=== PATIENT | male | born 1945 ===

== ENCOUNTER 2021-12-01 10:51 | Inpatient (IN) ==
[2021-12-01] MEDS ORDERED: Senna TAB 8.6 mg TAB PO PRN (16:03)
[2021-12-01] MEDS ORDERED: Al Hydrox/Mg Hydrox/Simet LIQ 30 ML UDC PO PRN (16:37)
[2021-12-01] MEDS: Magnesium Hydroxide LIQ 30 ML UDC PO PRN (20:42)
[2021-12-01] MEDS: Heparin 5000 UNITS/ML 1 mL VIAL SUBCUT SCH (21:43)
[2021-12-02] MEDS: Magnesium Hydroxide LIQ 30 ML UDC PO PRN (03:44)
[2021-12-02] MEDS: Heparin 5000 UNITS/ML 1 mL VIAL SUBCUT SCH ×3 (05:56→23:27)
[2021-12-02 07:02] LABS: Hematocrit 30 % (42-52); Hemoglobin 10.4 g/dL (14.0-18.0); Mean Corpuscular HGB Conc 34 g/dL (31-36); Mean Corpuscular Hemoglobin 32 pg (27-31); Mean Corpuscular Volume 92 fL (80-94); Mean Platelet Volume 7.6 fL (7.4-10.4); Platelet Count 339 10^3/uL (150-450); Red Blood Count 3.28 10^6 /uL (4.18-5.48); Red Cell Distribution Width 14 % (10-15); White Blood Count 11.8 10^3/uL (3.5-10.8)
[2021-12-02 07:20] LABS: Albumin 3.2 g/dL (3.2-5.2); Albumin/Globulin Ratio 1.4 (1-3); Calcium 8.7 mg/dL (8.6-10.3); Globulin 2.3 g/dL (2-4); Potassium 3.6 mmol/L (3.5-5.0); Total Bilirubin 1.2 mg/dL (0.2-1.0); Total Protein 5.5 g/dL (6.4-8.9); eGFR CKD-EPI 95.5 (>60)
[2021-12-02 09:49] LABS: Polychromasia 1+
[2021-12-02 09:50] LABS: ABS Eosinophils 0.2 10^3/ul (0-0.6); ABS Lymphocytes 2.8 10^3/ul (1.0-4.8); ABS Monocytes 1.1 10^3/ul (0-0.8); ABS Neutrophils 7.7 10^3/ul (1.5-7.7); Eosinophil % 1.8 %; Lymphocyte % 24.1 %; Nucleated Red Blood Cells % 0.2
[2021-12-02] MEDS ORDERED: Ondansetron ODT 4 mg TAB 4 MG TAB PO PRN (19:59)
[2021-12-02] MEDS: Senna TAB 8.6 mg TAB PO SCH (21:19)
[2021-12-03] MEDS: Heparin 5000 UNITS/ML 1 mL VIAL SUBCUT SCH ×3 (05:47→21:24)
[2021-12-03] MEDS: Senna TAB 8.6 mg TAB PO SCH (21:17)
[2021-12-04] MEDS: Heparin 5000 UNITS/ML 1 mL VIAL SUBCUT SCH ×3 (06:53→21:04)
[2021-12-04] MEDS: Senna TAB 8.6 mg TAB PO SCH (21:00)
[2021-12-05] MEDS: Heparin 5000 UNITS/ML 1 mL VIAL SUBCUT SCH ×3 (06:43→21:46)
[2021-12-05] MEDS: Senna TAB 8.6 mg TAB PO SCH (22:19)
[2021-12-06] MEDS: Heparin 5000 UNITS/ML 1 mL VIAL SUBCUT SCH ×3 (05:16→22:22)
[2021-12-06] MEDS: Lidocaine PATCH 5% PATCH TRANSDERM SCH (11:17)
[2021-12-06] MEDS: Senna TAB 8.6 mg TAB PO SCH (22:20)
[2021-12-07] MEDS: Heparin 5000 UNITS/ML 1 mL VIAL SUBCUT SCH ×3 (05:34→21:04)
[2021-12-07] MEDS: Lidocaine PATCH 5% PATCH TRANSDERM SCH (09:00)
[2021-12-07] MEDS: Senna TAB 8.6 mg TAB PO SCH (21:00)
[2021-12-08] MEDS: Heparin 5000 UNITS/ML 1 mL VIAL SUBCUT SCH ×3 (06:30→21:12)
[2021-12-08] MEDS: Lidocaine PATCH 5% PATCH TRANSDERM SCH (09:14)
[2021-12-08] MEDS: Senna TAB 8.6 mg TAB PO SCH (20:49)
[2021-12-09] MEDS: Heparin 5000 UNITS/ML 1 mL VIAL SUBCUT SCH ×3 (06:45→21:24)
[2021-12-09 07:57] LABS: ABS Basophils 0.1 10^3/ul (0-0.2); ABS Eosinophils 0.1 10^3/ul (0-0.6); ABS Lymphocytes 1.2 10^3/ul (1.0-4.8); ABS Monocytes 0.9 10^3/ul (0-0.8); ABS Neutrophils 4.1 10^3/ul (1.5-7.7); Eosinophil % 1.3 %; Hematocrit 30 % (42-52); Hemoglobin 10.6 g/dL (14.0-18.0); Lymphocyte % 19.5 %; Mean Corpuscular HGB Conc 35 g/dL (31-36); Mean Corpuscular Hemoglobin 32 pg (27-31); Mean Corpuscular Volume 93 fL (80-94); Mean Platelet Volume 7.2 fL (7.4-10.4); Platelet Count 578 10^3/uL (150-450); Red Blood Count 3.28 10^6 /uL (4.18-5.48); Red Cell Distribution Width 15 % (10-15); White Blood Count 6.4 10^3/uL (3.5-10.8)
[2021-12-09] MEDS: Lidocaine PATCH 5% PATCH TRANSDERM SCH (08:06)
[2021-12-09 08:43] LABS: Albumin 3.3 g/dL (3.2-5.2); Albumin/Globulin Ratio 1.2 (1-3); Calcium 9.4 mg/dL (8.6-10.3); Globulin 2.8 g/dL (2-4); Potassium 4.3 mmol/L (3.5-5.0); Total Bilirubin 0.9 mg/dL (0.2-1.0); Total Protein 6.1 g/dL (6.4-8.9); eGFR CKD-EPI 96.3 (>60)
[2021-12-09] MEDS: Senna TAB 8.6 mg TAB PO SCH (21:24)
[2021-12-10 04:22] VITALS: BP 127/64
[2021-12-10] MEDS: Heparin 5000 UNITS/ML 1 mL VIAL SUBCUT SCH (06:34)
[2021-12-10] MEDS: Lidocaine PATCH 5% PATCH TRANSDERM SCH (10:20)
== END 2021-12-10 13:53 | disposition home or self-care (01) | DRG 561 ==
LOC: PMRU 15:50
PROVIDERS: ADMIT Physical Medicine & Rehabilitation; ATTEND Physical Medicine & Rehabilitation